=== PATIENT | male | born 1990 | race American Indian/Alaskan Native ===

== ENCOUNTER 2020-03-28 20:17 | Emergency (ER) | payer OTHER ==
[2020-03-28 22:48] VITALS: BP 133/76
[2020-03-28] MEDS ORDERED: IBUPROFEN ORAL LIQD 100 MG/5 ML ORAL.LIQD PO ONE (23:53)
--- NOTE | 2020-03-28 23:53 | Emergency Department Report ---
ED General Adult HPI - General Chief complaint: Sore Throat Stated complaint: SORE THROAT PUI?: No Time Seen by Provider: 03/28/20 23:52 Source: patient, RN notes reviewed Mode of arrival: Ambulatory Limitations: No Limitations - History of Present Illness Initial comments: The patient was evaluated in the emergency department for symptoms described in the history of present illness. He/she was evaluated in the context of the global COVID-19 pandemic, which necessitated consideration that the patient might be at risk for infection with the virus that causes COVID-19. Institutional protocols and algorithms that pertain to the evaluation of patients at risk for COVID-19 are in a state of rapid change based on information released by regulatory bodies including the CDC and federal and state organizations. These policies and algorithms were followed during the patient's care in the emergency department. Please note that these policies, procedures and recommendations changed on a rapid basis. Patient is a 29-year-old gentleman, who is not known to myself previously. Presents to the ER with a complaint of "hole in my throat." He took a picture of his throat, and indicates a white plaque on his right tonsil/adenoid. There is no trauma. There is no headache, there is no midline neck pain, there is no chest pain or abdominal pain. No cough. No fever. Positive discomfort with chewing solid foods. He is able to tolerate liquids. Positive tinnitus in the right ear. No loss of auditory acuity. Positive right-sided neck adenopathy. -: Gradual, days(s) Location: mouth, neck Radiation: non-radiation Quality: aching Consistency: constant Improves with: other Worsens with: eating - Related Data Allergies Allergy/AdvReac Type Severity Reaction Status Date / Time No Known Allergies Allergy Unverified 03/28/20 21:32 ED Review of Systems ROS: Stated complaint: SORE THROAT Other details as noted in HPI Constitutional: denies: fever Eyes: denies: eye discharge, vision change ENT: ear pain, throat pain, congestion. denies: hearing loss, epistaxis Respiratory: denies: cough Cardiovascular: denies: chest pain Gastrointestinal: denies: abdominal pain Musculoskeletal: denies: myalgia Neurological: denies: weakness Psychiatric: anxiety ED Past Medical Hx - Past Medical History Previous Medical History?: No - Surgical History Past Surgical History?: No - Social History Smoking Status: Never Smoker Substance Use Type: None ED Physical Exam - General Limitations: No Limitations General appearance: alert, in no apparent distress - Head Head exam: Present: atraumatic, normocephalic - Eye Eye exam: Present: normal appearance, EOMI. Absent: nystagmus - ENT ENT exam: Present: normal exam, mucous membranes moist - Expanded ENT Exam Expanded Ear exam: Present: normal external inspection Mouth exam: Present: normal external inspection, tongue normal. Absent: drooling, trismus, muffled voice, tongue elevation, laceration Teeth exam: Present: normal inspection Throat exam: Positive: tonsillar erythema, tonsillar exudate, other (There is no stridor. There is no dysphonia. There is no elevation of the base of the tongue. There is no mastoid tenderness peer) - Neck Neck exam: Present: normal inspection, full ROM, lymphadenopathy (Right-sided lymphadenopathy). Absent: tenderness, meningismus - Respiratory Respiratory exam: Present: normal lung sounds bilaterally. Absent: respiratory distress, wheezes, rales, rhonchi, stridor, chest wall tenderness - Cardiovascular Cardiovascular Exam: Present: regular rate, normal rhythm, normal heart sounds. Absent: bradycardia, tachycardia, irregular rhythm, systolic murmur, diastolic murmur, rubs, gallop - GI/Abdominal GI/Abdominal exam: Present: soft. Absent: distended, tenderness, guarding, rebound, rigid, pulsatile mass - Rectal Rectal exam: Present: deferred - Extremities Exam Extremities exam: Present: normal inspection, full ROM, other (2+ pulses noted in the bilateral upper extremities) - Back Exam Back exam: Present: normal inspection, full ROM. Absent: tenderness, CVA tenderness (R), CVA tenderness (L), paraspinal tenderness, vertebral tenderness - Neurological Exam Neurological exam: Present: alert, normal gait, other (No facial droop. Tongue midline. Extraocular movements intact bilaterally. Facial sensation intact to light touch in V1, V2, V3 distribution bilaterally. 5 and a 5 strength in 4 extremities. Sensation intact to light touch in 4 extremities.) - Psychiatric Psychiatric exam: Present: anxious - Skin Skin exam: Present: warm, dry, intact, normal color. Absent: rash ED Course Vital Signs 03/28/20 21:29 Temperature 98.4 F Pulse Rate 67 Respiratory 17 Rate Blood Pressure 133/76 O2 Sat by Pulse 97 Oximetry - Reevaluation(s) Reevaluation #1: 03/29/20 00:58 03/29/20 00:59 Strep screen is negative. No active vomiting. Suitable for discharge at this time. ED Medical Decision Making - Lab Data Vital Signs 03/28/20 21:29 Temperature 98.4 F Pulse Rate 67 Respiratory 17 Rate Blood Pressure 133/76 O2 Sat by Pulse 97 Oximetry - Medical Decision Making Differential diagnosis, including but not limited to: Viral syndrome, pharyngitis, adenitis Assessment and plan: 29-year-old gentleman, who was afebrile, with reassuring vital signs, tolerating liquid feeds, with painful white plaque on tonsil, without evidence of eminent airway collapse. There is no stridor, there is no dysphonia, there is no elevation of the base of the tongue, the trachea is nontender in the midline. Treat symptoms with ibuprofen, patient able to tolerate liquid feeds, send strep swab, reassess. Critical care attestation.: If time is entered above; I have spent that time in minutes in the direct care of this critically ill patient, excluding procedure time. ED Disposition Clinical Impression: Pharyngitis Disposition: [id number] TO HOME OR SELFCARE Is pt being admited?: No Does the pt Need Aspirin: No Condition: Stable Instructions: Pharyngitis, Upper Respiratory Infection, Adult, [id number] Additional Instructions: Cultures were sent today, and results will be available in the next 3 to 5 days. Please follow-up with your primary care doctor in the next 5 days for repeat checkup/evaluation. Please have a primary care doctor contact the medical records department to obtain culture results. Please take ibuprofen, [id number], 400 to 600 mg, by mouth, every 6 hours as needed for pain, alternating with acetaminophen, 650 mg by mouth, every 4-6 hours, as needed for pain. Patient may purchase tablet or liquid formulations. Advance diet as tolerated, and drink plenty of fluids. Please return to the emergency room right away with new pain, worsening pain, migration of pain, projectile vomiting, change in mental status, confusion, inability to tolerate liquid feeds. Patient most likely has a viral infection in the back of the throat, these are typically self resolving, and should improve within the next 5 to 7 days. There is no cure for her virus at this time, and antibiotics are not effective. However, patient will likely clear this infection on his own Referrals: ABRAM DAO MD [Staff Physician] - 3-5 Days [facility] [Provider Group] - 3-5 Days Forms: Work/School Release Form(ED)
[2020-03-29] MEDS ORDERED: ACETAMINOPHEN 325 MG TAB ONE (00:58)
[2020-03-29] MEDS ORDERED: ACETAMINOPHEN 325 MG/10.15 ML ORAL LIQD UNIT DOSE PO ONE (00:59)
[2020-03-29] MEDS ORDERED: ACETAMINOPHEN 325 MG TAB PO ONE (01:06)
== END 2020-03-29 01:10 | disposition home or self-care (01) ==
LOC: ED 20:17
DX: J02.9 Acute pharyngitis, unspecified (principal)
CPT/HCPCS: 87116; 87430